=== PATIENT | female | born 1960 | race Caucasian/White ===

== ENCOUNTER 2016-10-14 17:31 | Emergency (ER) | payer BC ==
[2016-10-14 18:27] VITALS: BP 121/57
--- NOTE | 2016-10-14 20:30 | RAD ---
INDICATION: 6 weeks productive cough. Shortness of breath. COMPARISON: May 30, 2016 TECHNIQUE: Dual energy PA and routine lateral views of the chest were obtained. REPORT: Elevated lung volumes and both diffuse mild prominence of the interstitial markings and patchy rarefaction of the mid to upper lung zone interstitial markings. Airspace consolidation at the lingula concerning for pneumonia given the clinical data provided. Costochondral calcifications noted. Negative for pleural effusion or pneumothorax. The heart, pulmonary vasculature, and mediastinal contours are unremarkable. IMPRESSION: 1. The constellation of findings is most consistent with pneumonia at the lingula. Radiographic follow-up after therapy suggested to assess for resolution. 2. Stigmata of chronic obstructive pulmonary disease.
[2016-10-14] MEDS ORDERED: Erythromycin TAB* 250 MG PO ONE (20:50)
[2016-10-14] MEDS ORDERED: Benzonatate CAP* 100 MG PO ONE (20:51)
--- NOTE | 2016-10-14 21:11 | UC ---
Respiratory Complaint HPI - HPI Summary HPI Summary: HAD PNEUMONIA; PRODUCTIVE COUGH AND RESPIRATORY FULLNESS SINCE AUGUST. NO FEVER. - History of Current Complaint Chief Complaint: UCRespiratory Stated Complaint: CONGESTION, COUGH, Time Seen by Provider: 10/14/16 19:30 Hx Obtained From: Patient Hx Last Menstrual Period: post menopausal Onset/Duration: Gradual Onset, Lasting Weeks, Still Present Timing: Intermittent Episodes Severity Initially: Moderate Severity Currently: Moderate Character: Cough: Productive Aggravating Factors: Exertion, Deep Breaths Associated Signs And Symptoms: Positive: Wheezing, URI, Nasal Congestion, Hoarseness. Negative: Fever, Chills, Calf Pain, Calf Swelling - Risk Factors Cardiac Risk Factors: Negative Pseudomonas Risk Factors: Negative Tuberculosis Risk Factors: Negative - Allergies/Home Medications Allergies/Adverse Reactions: Allergies Allergy/AdvReac Type Severity Reaction Status Date / Time ENVIRONMENTAL ALLERGIES Allergy ASMA LIKE Uncoded 10/14/16 18:27 SYMPTOMS LEMON-GRASS Allergy ASTHMA - Uncoded 10/14/16 18:27 CHEST TIGHTNESS Home Medications: Home Medications Albuterol Sulfate [Proair Respiclick] 1 puff PO PRN 10/14/16 [History] Guaifenesin [Eql Mucus-ER Maximum Stre] 1,200 mg PO PRN 10/14/16 [History] PMH/Surg Hx/FS Hx/Imm Hx Previously Healthy: Yes - Surgical History Surgical History: Yes Surgery Procedure, Year, and Place: SKIN BIOPSY. BREAST BIOPSY - Family History Known Family History: Positive: Hypertension - father, Other - breast CA - mother Negative: Cardiac Disease - Social History Occupation: Employed Full-time Lives: With Family Alcohol Use: None Substance Use Type: None Smoking Status (MU): Never Smoked Tobacco Review of Systems Constitutional: Negative Skin: Negative Eyes: Negative ENT: Negative Respiratory: Cough Cardiovascular: Negative Gastrointestinal: Negative Genitourinary: Negative Motor: Negative Neurovascular: Negative Musculoskeletal: Negative Neurological: Negative Psychological: Negative All Other Systems Reviewed And Are Negative: Yes Physical Exam Triage Information Reviewed: Yes Appearance: No Pain Distress, Well-Nourished, Ill-Appearing - MILDLY Vital Signs: Initial Vital Signs Temp 98.9 F 10/14/16 18:22 Pulse 82 10/14/16 18:22 Resp 18 10/14/16 18:22 BP 121/57 10/14/16 18:22 Pulse Ox 100 10/14/16 18:22 Vital Signs Reviewed: Yes Eye Exam: Normal ENT Exam: Normal ENT: Positive: Normal ENT inspection, Hearing grossly normal, Pharynx normal, TM bulging, TM dull Dental Exam: Normal Neck exam: Normal Neck: Positive: Supple, Nontender, No Lymphadenopathy Respiratory Exam: Other - COUGH Respiratory: Positive: Chest non-tender, Lungs clear, Normal breath sounds, No respiratory distress, No accessory muscle use Cardiovascular Exam: Normal Cardiovascular: Positive: RRR, No Murmur, Pulses Normal Abdominal Exam: Normal Abdomen Description: Positive: Nontender Musculoskeletal Exam: Normal Neurological Exam: Normal Psychological Exam: Normal Skin Exam: Normal Diagnostic Evaluation - Laboratory O2 Sat by Pulse Oximetry: 100 Respiratory Course/Dx - Differential Dx/Diagnosis Differential Diagnosis/HQI/PQRI: Asthma, Bronchitis, Sinusitis Provider Diagnoses: LINGULAR PNEUMONIA Discharge - Discharge Plan Condition: Stable Disposition: HOME Prescriptions: Benzonatate CAP* [Tessalon 100 MG CAP*] 100 mg PO TID PRN #15 cap PRN Reason: Cough Erythromycin TAB* 500 mg PO BID #20 tab Patient Education Materials: Pneumonia (ED) Forms: *Work Release Referrals: Tory Dodge MD [Primary Care Provider] -
== END 2016-10-14 21:11 | disposition home or self-care (01) ==
LOC: UCEAST 17:31
DX: J18.1 Lobar pneumonia, unspecified organism (principal)
CPT/HCPCS: 71020; 99212; A9270-GY; G0463